=== PATIENT | female | born 1960 | race Caucasian/White ===

== ENCOUNTER 2018-06-26 08:30 | Emergency (ER) | payer OTHER ==
[~2018-06-26] VITALS: Ht 154.9 cm; Wt 81.4 kg
[~2018-06-26 08:30] MED LIST: ACET500; ACTOS; ALBU.083IS IH; ALBU90OI6 INH; ALBU90OI61 INH; ASPI325EC PO; ATEN100 PO; BENZ100A PO; CHOL10002 PO; CIPR250 PO; CIPR500 PO; Cefdinir300 MG PO; DILT240ER PO; DOCU100 PO; FISH1000 PO; Fenofibrate200 MG PO; GEMF600 PO; HYDCHL25 PO; HYDMOR2 PO; IBUP800 PO; IBUPROFEN PO; INSUASPI SC; INSULANI SC; INSULANPEN SC; LISI20 PO; MATZIM PO; METCAR500 PO; METF500 PO; METF500C PO; MORP15ER PO; Metformin HCl500 MG PO; NITR100 PO; Novolog100 UNIT/1; ONDA4 PO; ONDA4ODT MM; PHENA200 PO; PROM25 PO; RANI150 PO; RXPROM25 PO; Robaxin-750750 MG PO; SACC250C PO; SULTRIDS PO; Sulindac200 MG PO; TAMS.4ER PO; TRIHYD253A PO; TYLENOL PO; Tylenol325 MG PO; VALA500 PO
[2018-06-26] MEDS ORDERED: LOSARTAN POTASS25 MG PO (08:49)
[2018-06-26] MEDS ORDERED: ATOR20 PO (08:49)
== END 2018-06-26 09:50 | disposition home or self-care (01) ==
LOC: ER 08:30
DX: I10 Essential (primary) hypertension (principal); F32.9 Major depressive disorder, single episode, unspecified; J45.909 Unspecified asthma, uncomplicated; E11.9 Type 2 diabetes mellitus without complications; Z88.5 Allergy status to narcotic agent; Z88.2 Allergy status to sulfonamides; Z88.8 Allergy status to other drugs, medicaments and biological substances; Z79.899 Other long term (current) drug therapy; Z79.4 Long term (current) use of insulin; Z79.82 Long term (current) use of aspirin
CPT/HCPCS: 99282

== ENCOUNTER → 2018-08-17 | Outpatient (CLI) | payer OTHER ==
[~2018-08-17] MED LIST changes: +ATOR20 PO; +LOSARTAN POTASS25 MG PO
[2018-08-18 14:07] LABS: HPV 16 Negative (Negative); HPV 18 Negative (Negative); HPV OTHER HR TYPES Negative (Negative)
== END | disposition home or self-care (01) ==
LOC: LAB SHORT 13:03 → LAB 13:03
PROVIDERS: Family Medicine
DX: Z01.419 Encounter for gynecological examination (general) (routine) without abnormal findings (principal); R87.810 Cervical high risk human papillomavirus (HPV) DNA test positive
CPT/HCPCS: 87624; G0145

== ENCOUNTER → 2018-11-30 | Outpatient (CLI) | payer OTHER | END | disposition home or self-care (01) | LOC: LAB 17:06 → LAB SHORT 17:06 | DX: N20.0 Calculus of kidney (principal) | CPT/HCPCS: 87077; 87086; 87186 ==

== ENCOUNTER → 2019-01-02 | Outpatient (CLI) | payer OTHER ==
[2019-01-03 07:14] LABS: Candida species (DNA Probe) Negative (NEGATIVE); G. vaginalis (DNA Probe) Negative (NEGATIVE); T. vaginalis (DNA Probe) Negative (NEGATIVE)
== END | disposition home or self-care (01) ==
LOC: LAB SHORT 16:15 → LAB 16:15
PROVIDERS: Family Medicine
DX: N39.0 Urinary tract infection, site not specified (principal); B37.3 Candidiasis of vulva and vagina
CPT/HCPCS: 87086; 87480; 87510; 87660

== ENCOUNTER → 2019-05-25 | Outpatient (CLI) | payer OTHER ==
[2019-05-26 14:53] LABS: Stool Occult Bld Immuno 1 Negative (NEGATIVE)
== END ==
LOC: LAB SHORT 15:45 → LAB 15:45
PROVIDERS: Student in an Organized Health Care Education/Training Program
DX: Z12.11 Encounter for screening for malignant neoplasm of colon (principal)
CPT/HCPCS: G0328

== ENCOUNTER 2019-11-27 12:03 | Day surgery (SDC) | payer OTHER ==
[~2019-11-27] VITALS: Ht 154.9 cm; Wt 82.8 kg
[~2019-11-27 12:03] MED LIST changes: +ALBU2.5V5; +ALBU90OI; +Amlodipine Bes2.5 MG; +BASAGLAR K100 UNIT/2; +CYCL10; +FAMO20; +FURO20; +GABA300; +Glucose4 GM; +Klor-Con 1010 MEQ; +NITR.4SL; +QVAR REDIHALE10.6 GM; +TRAZ50
--- NOTE | 2019-11-27 16:19 | NUR ---
11/27/19 1619 Nancy Devine DELAYED ENTRY 1447 PT C/O 10/11 PAIN IN SDU. PT MEDICATED WITH IV FENTANYL AND PO DILAUDED PER SURGEON PRESCRIPTION. PT STATES PAIN IS TOLERABLE BEFORE DC. PT DENIES NAUSEA IN SDU HOWEVER EMESIS X1 APPROXIMATELY 30ML YELLOW BILE WHILE GETTING DRESSED.
== END 2019-11-27 15:58 | disposition home or self-care (01) ==
LOC: ORSCSDS 12:03
PROVIDERS: Orthopaedic Surgery
PROC: 0LQ24ZZ Repair Left Shoulder Tendon, Percutaneous Endoscopic Approach (ICD-10-PCS; principal; 2019-11-27 13:30)
PROC: 0RNK4ZZ Release Left Shoulder Joint, Percutaneous Endoscopic Approach (ICD-10-PCS; principal; 2019-11-27 13:30)
PROC: 0RBK4ZZ Excision of Left Shoulder Joint, Percutaneous Endoscopic Approach (ICD-10-PCS; principal; 2019-11-27 13:30)
DX: M75.112 Incomplete rotator cuff tear or rupture of left shoulder, not specified as traumatic (principal); M75.22 Bicipital tendinitis, left shoulder; M75.42 Impingement syndrome of left shoulder; I10 Essential (primary) hypertension; J45.909 Unspecified asthma, uncomplicated; E11.9 Type 2 diabetes mellitus without complications; Z79.899 Other long term (current) drug therapy
CPT/HCPCS: 82947; C1713; J0171; J0690; J1100; J1885; J2250; J2370; J2405; J2704; J3010; J7120

== ENCOUNTER 2019-12-05 07:06 | Emergency (ER) | payer OTHER ==
[~2019-12-05] VITALS: Ht 154.9 cm; Wt 83.9 kg
[~2019-12-05 07:06] MED LIST changes: -Amlodipine Bes2.5 MG; +Amlodipine Bes2.5 MG PO; -CYCL10; +CYCL10 PO; -GABA300; +GABA300 PO
[2019-12-05] MEDS ORDERED: Dilaudid 2 mg Ta2 MG PO (07:21)
[2019-12-05 08:07] LABS: BASOPHILS ABSOLUTE AUTO 0.05 K/mm3 (0.00-0.23); BASOPHILS PERCENT AUTO 0 % (0-2); EOSINOPHILS ABSOLUTE AUTO 0.36 K/mm3 (0.00-0.68); EOSINOPHILS PERCENT AUTO 3 % (0-6); Hematocrit 35.7 % (33.0-51.0); Hemoglobin 11.9 g/dL (11.5-16.0); IMMATURE GRAN ABSOLUTE AUTO 0.14 K/mm3 (0.00-0.10); IMMATURE GRAN PERCENT AUTO 1 % (0-1); LYMPHOCYTES ABSOLUTE AUTO 3.51 K/mm3 (0.84-5.20); LYMPHOCYTES PERCENT AUTO 29 % (21-46); MONOCYTES ABSOLUTE AUTO 0.97 K/mm3 (0.16-1.47); MONOCYTES PERCENT AUTO 8 % (4-13); Mean Corpuscular HGB 29.5 pg (26.0-34.0); Mean Corpuscular HGB Conc 33.3 g/dL (31.5-36.5); Mean Corpuscular Volume 89 fL (80-100); Mean Platelet Volume 10.1 fL (9.1-12.4); NEUTROPHILS ABSOLUTE AUTO 7.02 K/mm3 (1.96-9.15); NEUTROPHILS PERCENT AUTO 58 % (41-73); Platelet Count 371 K/mm3 (150-400); RDW Coefficient Variation 13.2 % (11.7-14.2); RDW Standard Deviation 43.1 fL (35.1-46.3); Red Blood Cell Count 4.03 M/mm3 (3.80-5.20); White Blood Cell Count 12.05 K/mm3 (4.00-11.30)
[2019-12-05 08:29] LABS: Alanine Aminotransfer (ALT/SGP 24 U/L (12-78); Albumin/Globulin Ratio 0.7 (0.8-1.8); Alk Phos 135 U/L (50-136); Anion Gap 4 mmol/L (6-16); Aspartate Aminotrans (AST/SGOT 14 U/L (12-37); Bilirubin, Total 0.5 mg/dL (0.1-1.0); Blood Urea Nitrogen 13 mg/dL (8-24); Bun/Creatinine Ratio 20.4 (12.0-20.0); CO2, Blood 31 mmol/L (21-32); Calcium, Blood 8.8 mg/dL (8.5-10.1); Chloride, Blood 102 mmol/L (98-108); Creatinine, Blood 0.64 mg/dL (0.40-1.00); Globulin, Blood 4.1 g/dL (2.2-4.0); Glomerular Filtration Rate >60 (60-); Glucose, Blood 261 mg/dL (70-99); Potassium, Blood 3.7 mmol/L (3.5-5.5); Sodium, Blood 137 mmol/L (136-145); Total Protein, Blood 7.1 g/dL (6.4-8.2)
[2019-12-05 09:34] LABS: Source, Urine Clean Catch
[2019-12-05 09:41] LABS: Bilirubin, Urine Neg (Neg); Blood, Urine 1+ (Neg); Glucose Qualitative, Urine 3+ (Neg); Ketones, Urine Neg (Neg); Leukocyte Esterase, Urine Neg (Neg); Nitrite, Urine Neg (Neg); Protein, Urine 2+ (Neg); Specific Gravity, Urine 1.015 (1.003-1.022); Urobilinogen, Urine NORM (Normal); pH, Urine 6.5 (5.0-8.0)
[2019-12-05 09:58] LABS: Appearance, Urine Hazy (Clear); Bacteria Not Seen /hpf; Color, Urine Yellow (P-Yellow); Squamous Epithelial Cells Few /hpf (Few); White Blood Cells, Urine Not Seen /hpf (0-5)
== END 2019-12-05 11:55 | disposition short-term general hospital (02) ==
LOC: ER 07:06
PROVIDERS: Emergency Medicine
DX: N13.2 Hydronephrosis with renal and ureteral calculous obstruction (principal); J45.909 Unspecified asthma, uncomplicated; I10 Essential (primary) hypertension; E11.9 Type 2 diabetes mellitus without complications; Z88.5 Allergy status to narcotic agent; Z88.2 Allergy status to sulfonamides; Z88.8 Allergy status to other drugs, medicaments and biological substances; Z79.4 Long term (current) use of insulin; Z79.899 Other long term (current) drug therapy
CPT/HCPCS: 74176; 80053; 81001; 83690; 85025; 96361; 96374; 96375; 96376; 99285-25; J1170; J1885; J2405; J7030; U0002

== ENCOUNTER → 2022-02-05 | Outpatient (CLI) | payer OTHER ==
[~2022-02-05] MED LIST changes: +ASPI81CH PO; +BASAGLAR K100 UNIT/4; +CEPH500 PO; +CLOP75 PO; +Dilaudid 2 mg Ta2 MG PO; -FURO20; +FURO20 PO; +LANTUS SOL100 UNIT/1 SC; +LOSARTAN POTAS100 M1 PO; -LOSARTAN POTASS25 MG PO; +PANT20 PO; +POTCHL20ER PO; +QVAR REDIHALE10.6 G3 INH; -QVAR REDIHALE10.6 GM
== END ==
LOC: LAB 11:45 → LAB SHORT 11:45
DX: R82.90 Unspecified abnormal findings in urine (principal)
CPT/HCPCS: 87077; 87086; 87186

== ENCOUNTER 2022-02-13 15:39 | Inpatient (IN) | payer OTHER ==
[~2022-02-13] VITALS: Ht 154.9 cm; Wt 72.6 kg
[~2022-02-13 15:39] MED LIST changes: -ALBU90OI; +ALBU90OI INH; -ATOR20 PO; +ATOR40TA PO; -BASAGLAR K100 UNIT/4; +BASAGLAR K100 UNIT/4 SC
[2022-02-13 16:37] LABS: BASOPHILS ABSOLUTE AUTO 0.04 K/mm3 (0.00-0.23); BASOPHILS PERCENT AUTO 0 % (0-2); EOSINOPHILS ABSOLUTE AUTO 0.07 K/mm3 (0.00-0.68); EOSINOPHILS PERCENT AUTO 1 % (0-6); Hemoglobin 14.2 g/dL (11.5-16.0); IMMATURE GRAN ABSOLUTE AUTO 0.06 K/mm3 (0.00-0.10); IMMATURE GRAN PERCENT AUTO 1 % (0-1); LYMPHOCYTES ABSOLUTE AUTO 2.91 K/mm3 (0.84-5.20); LYMPHOCYTES PERCENT AUTO 29 % (21-46); MONOCYTES ABSOLUTE AUTO 0.57 K/mm3 (0.16-1.47); MONOCYTES PERCENT AUTO 6 % (4-13); Mean Corpuscular HGB Conc 34.6 g/dL (31.5-36.5); Mean Corpuscular Volume 84 fL (80-100); Mean Platelet Volume 9.8 fL (9.1-12.4); NEUTROPHILS ABSOLUTE AUTO 6.26 K/mm3 (1.96-9.15); NEUTROPHILS PERCENT AUTO 63 % (41-73); Platelet Count 447 K/mm3 (150-400); RDW Coefficient Variation 12.8 % (11.7-14.2); RDW Standard Deviation 38.8 fL (35.1-46.3); White Blood Cell Count 9.91 K/mm3 (4.00-11.30)
[2022-02-13 16:56] LABS: Albumin, Blood 3.9 g/dL (3.4-5.0); Albumin/Globulin Ratio 0.9 (0.8-1.8); Bilirubin, Total 0.7 mg/dL (0.1-1.0); Bun/Creatinine Ratio 14.6 (12.0-20.0); Calcium, Blood 9.7 mg/dL (8.5-10.1); Creatinine, Blood 0.62 mg/dL (0.40-1.00); Globulin, Blood 4.2 g/dL (2.2-4.0); Potassium, Blood 3.1 mmol/L (3.5-5.5); Total Protein, Blood 8.1 g/dL (6.4-8.2)
[2022-02-14 02:12] LABS: Source, Urine Clean Catch
[2022-02-14 02:15] LABS: Bilirubin, Urine Neg (Neg); Blood, Urine 1+ (Neg); Glucose Qualitative, Urine Neg (Neg); Ketones, Urine 1+ (Neg); Leukocyte Esterase, Urine 3+ (Neg); Nitrite, Urine Neg (Neg); Protein, Urine 3+ (Neg); Urobilinogen, Urine NORM (Normal)
[2022-02-14 02:23] LABS: Appearance, Urine Hazy (Clear); Color, Urine Yellow (P-Yellow)
[2022-02-14 02:24] LABS: Amorphous Light (0-Heavy); Bacteria Many /hpf; Red Blood Cells, Urine 0-2 /hpf (0-2); Squamous Epithelial Cells Many /hpf (Few)
[2022-02-14 05:04] LABS: BASOPHILS ABSOLUTE AUTO 0.05 K/mm3 (0.00-0.23); BASOPHILS PERCENT AUTO 1 % (0-2); EOSINOPHILS PERCENT AUTO 2 % (0-6); Hematocrit 38.6 % (33.0-51.0); Hemoglobin 13.2 g/dL (11.5-16.0); IMMATURE GRAN ABSOLUTE AUTO 0.03 K/mm3 (0.00-0.10); IMMATURE GRAN PERCENT AUTO 0 % (0-1); LYMPHOCYTES ABSOLUTE AUTO 2.76 K/mm3 (0.84-5.20); LYMPHOCYTES PERCENT AUTO 32 % (21-46); MONOCYTES ABSOLUTE AUTO 0.75 K/mm3 (0.16-1.47); MONOCYTES PERCENT AUTO 9 % (4-13); Mean Corpuscular HGB 28.8 pg (26.0-34.0); Mean Corpuscular HGB Conc 34.2 g/dL (31.5-36.5); Mean Corpuscular Volume 84 fL (80-100); NEUTROPHILS ABSOLUTE AUTO 4.85 K/mm3 (1.96-9.15); NEUTROPHILS PERCENT AUTO 56 % (41-73); Platelet Count 373 K/mm3 (150-400); RDW Coefficient Variation 12.9 % (11.7-14.2); RDW Standard Deviation 39.1 fL (35.1-46.3); Red Blood Cell Count 4.59 M/mm3 (3.80-5.20); White Blood Cell Count 8.64 K/mm3 (4.00-11.30)
[2022-02-14 05:51] LABS: Albumin, Blood 3.3 g/dL (3.4-5.0); Albumin/Globulin Ratio 0.9 (0.8-1.8); Bilirubin, Total 0.7 mg/dL (0.1-1.0); Bun/Creatinine Ratio 16.4 (12.0-20.0); Calcium, Blood 8.5 mg/dL (8.5-10.1); Creatinine, Blood 0.55 mg/dL (0.40-1.00); Globulin, Blood 3.6 g/dL (2.2-4.0); Potassium, Blood 3.4 mmol/L (3.5-5.5); Total Protein, Blood 6.9 g/dL (6.4-8.2)
--- NOTE | 2022-02-14 07:43 | NUR ---
PATIENT IS ALERT AND ORIENTED X3. SLIGHT WEAKNESS RIGHT UPPER AND LOWER EXTREMITIES. TONGUE DEVIATES TO THE LEFT ALTHOUGH SMILE APPEARS SYMETRICAL. PUPILS EQUAL AND REACTIVE TO LIGHT. SHE IS SOMEWHAT SLOW TO RESPOND, AND WAS VERY FRUSTRATED THAT SHE WAS UNABLE TO REMEMBER THE DOSES OF HER MEDICATIONS, OR EXACTLY HOW LONG AGO SHE BEGAN FEELING BAD AND STOPPED TAKING HER PILLS. SHE WAS ABLE TO TELL ME THAT [facility] IS HER PHARMACY, AND THAT THEY COULD GIVE US THE CORRECT INFORMATION. STOOD PATIENT UP TO ASSIST TO THE BEDSIDE COMMODE, AND SHE WAS ABLE TO PIVOT TO THE COMMODE AND SIT WITH LITTLE MORE THAN A SUPERVISION. BP UPON ARRIVAL TO THE FLOOR WAS 205 SYSTOLIC. AFTER LAYING DOWN, AND GETTING COMFORTABLE,PRESSURES WENT INTO THE 170'S. ATTEMPTED TO GIVE AM DOSE OF COZAAR, BUT THE MEDICATION WAS NOT READILY AVAILABLE IT WASN'T DUE UNTIL 0900. ONCOMING RN WILL CONTACT HOSPITALIST TO NOTIFY
--- NOTE | 2022-02-14 12:10 | NUR ---
TAKING OVER PT CARE 1200 FROM [facility], OBTAINED REPORT. PLAN FOR MRI AFTER VERIFYING STENT PLACED IS COMPATIBLE. ASSESSED PT'S NEURO 1145- STATES SHE FEELS OVERALL FATIGUED, FUZZY VISION R EYE, SHOE STAINER STRONG AND EQUAL BUT STATES SHE FEELS THE R IS "", HAS NUMBNESS AND LOSS OF SENSATION OF R ARM. BLOOD PRESURE ELEVATED, PERMISSIVELY RELATED TO DIAGNOSIS. NS @75ML/HR. ECHO COMPLETED. SWALLOW INTACT, TOLERATING FOOD AND FLUIDS. WILL VEE THE REST OF THE SHIFT.
--- NOTE | 2022-02-14 18:10 | NUR ---
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 BLURRY VISION IN R SIDE. ABLE TO AMBULATE WITH GOOD STRENGTH, MILDLY UNSTEADY, NEEDS CONTACT GUARD. TOLERATING FOOD AND FUIDS, SWALLOW INTACT. WILL REPORT TO SENIOR SUPPORT ANALYST.
--- NOTE | 2022-02-14 23:06 | NUR ---
2039 PT LYING IN BED, REPORTS A HEADACHE, NO TYLENOL ORDERED, WILL CALL AND F/U. TELE NSR AT 61. TEMP OF 99.3. BP 191/81. NO PRN OR SCHEDULED BP MEDS ORDERED, WILL ASK DR AND F/U. NO OTHER APPARENT SIGNS OF DISTRESS. CALL LIGHT IS IN REACH. 2158 TEMP IS NOW 98.9, PT REPORTS PAIN IS NOW MODERATE. PT DENIES NEED FOR ANYTHING ELSE AT THIS TIME. NO OTHER APPARENT SIGNS OF DISTRESS. CALL LIGHT IS IN REACH.
--- NOTE | 2022-02-15 00:23 | NUR ---
PT LYING IN BED, EYES CLOSED, APPEARS TO BE RESTING. BREATHING IS EVEN, UNLABORED. NO APPARENT SIGNS OF DISTRESS. CALL LIGHT IS IN REACH.
[2022-02-15] MEDS ORDERED: Cipro500 MG PO (03:09)
[2022-02-15] MEDS ORDERED: CEPH500 PO (03:10)
[2022-02-15] MEDS ORDERED: ADMELOG100 UNIT/2 SC (03:11)
--- NOTE | 2022-02-15 04:39 | NUR ---
0200 PT LYING IN BED, EYES CLOSED, APPEARS TO BE RESTING. BREATHING IS EVEN, UNLABORED. NO APPARENT SIGNS OF DISTRESS. CALL LIGHT IS IN REACH.
--- NOTE | 2022-02-15 04:40 | NUR ---
PT LYING IN BED, EYES CLOSED, APPEARS TO BE RESTING. WAKES EASILY TO VERBAL STIMULI. NO APPARENT SIGNS OF DISTRESS. CALL LIGHT IS IN REACH.
--- NOTE | 2022-02-15 04:40 | NUR ---
PT IS AAO X 4, ON RA. REPORTED A HEADACHE, AND HAD A TEMP OF 99.3. GOT TYLENOL. REPORTS NUMBNESS IN HER R ARM, NOT NEW, DR AWARE. BS WAS 126. PT HAS BLURRY VISION IN R EYE, NOT NEW, AWARE. TELE NSR.
--- NOTE | 2022-02-15 06:02 | NUR ---
PT LYING IN BED, EYES CLOSED, APPEARS TO BE RESTING.WAKES EASILY TO VERBAL STIMULI.NO APPARENT SIGNS OF DISTRESS. CALL LIGHT IS IN REACH. NO OTHER CHANGES THIS SHIFT.
[2022-02-15 07:00] LABS: Bun/Creatinine Ratio 20.1 (12.0-20.0); Calcium, Blood 8.8 mg/dL (8.5-10.1); Creatinine, Blood 0.7 mg/dL (0.40-1.00); Potassium, Blood 3.3 mmol/L (3.5-5.5)
[2022-02-15 12:10] LABS: CHOL/HDL RATIO 4.4; Cholesterol 186 mg/dL (50-200); HDL Cholesterol 42 mg/dL (>39); LDL/HDL RATIO 2.4; Low Density Lipoprotein Chol 99 mg/dL (0-110); Triglycerides 224 mg/dL (30-160); Very Low Density Lipoprot Chol 44 mg/dL (6-32)
[2022-02-15] MEDS ORDERED: AMLO5 PO (17:00)
[2022-02-15] MEDS ORDERED: POTA10T PO (17:01)
[2022-02-15] MEDS ORDERED: CLOP75 PO (17:01)
--- NOTE | 2022-02-15 18:18 | NUR ---
DISCHARGE SUMMARY PATIENT MILDLY DROWSY, FORGETFUL, EXPERIENCING SOME APHASIA THROUGHOUT SHIFT. REPORTS SOME ARM NUMBNESS. IND IN ROOM, TOLERATING ADA DIET AND LIQUIDS, VOIDING WELL. DISCHARGE ORDERS OBTAINED. DISCHARGE EDUCATION GIVEN ON NEW MEDS, FOLLOW UP RECOMMENDATIONS WITH PCP AND NEUROLOGY, AND ACTIVITY LEVEL. PATIENT'S TWO DAUGHTERS ATTENTIVE AT BEDSIDE. IV DC'D WNL. PATIENT LEFT UNIT AT 1800 VIA WHEELCHAIR FOR HOME WITH DAUGHTERS.
== END 2022-02-15 18:14 | disposition home or self-care (01) | DRG 65 ==
LOC: ER 15:39 → MEDS 15:40 → ENPENDDIS 02-15 16:04 → MEDS 02-15 18:14
PROVIDERS: Family Medicine; Student in an Organized Health Care Education/Training Program; ADMIT Internal Medicine
DX: I63.89 Other cerebral infarction (principal); G81.91 Hemiplegia, unspecified affecting right dominant side; N39.0 Urinary tract infection, site not specified; G93.49 Other encephalopathy; E86.0 Dehydration; E87.6 Hypokalemia; E11.9 Type 2 diabetes mellitus without complications; K57.90 Diverticulosis of intestine, part unspecified, without perforation or abscess without bleeding; I10 Essential (primary) hypertension; J45.909 Unspecified asthma, uncomplicated; Z96.0 Presence of urogenital implants; N83.209 Unspecified ovarian cyst, unspecified side; Z96.653 Presence of artificial knee joint, bilateral; Z98.890 Other specified postprocedural states; Z90.49 Acquired absence of other specified parts of digestive tract; Z88.8 Allergy status to other drugs, medicaments and biological substances; Z88.5 Allergy status to narcotic agent; Z88.2 Allergy status to sulfonamides; Z79.02 Long term (current) use of antithrombotics/antiplatelets; Z79.899 Other long term (current) drug therapy; Z79.01 Long term (current) use of anticoagulants; Z79.4 Long term (current) use of insulin; Z79.82 Long term (current) use of aspirin; Z79.84 Long term (current) use of oral hypoglycemic drugs; Z79.51 Long term (current) use of inhaled steroids; Z87.442 Personal history of urinary calculi
CPT/HCPCS: 36415; 70450; 70496; 70551; 71045; 80048; 80053; 80061; 81001; 82947; 83036; 83880; 85025; 87086; 93005; 93010; 93306; 93880; 94640; 94664; 94760; 96365; 97110; 97112; 97116; 97162; 97166; 97530; 99285-25; A9270; C9113; G0378; J0696; J1650; J1815; J3480; J7030; J7050; Q9967

== ENCOUNTER 2023-01-11 16:24 | Observation (INO) | payer OTHER ==
[~2023-01-11] VITALS: Ht 152.4 cm; Wt 69.0 kg
[~2023-01-11 16:24] MED LIST changes: +ADMELOG100 UNIT/2 SC; +AMLO5 PO; +Cipro500 MG PO; +POTA10T PO
[2023-01-11 16:52] LABS: Base Excess Venous -14.8 mmol/L; Bicarbonate Venous 13.5 mmol/L (24.0-30.0); PCO2 Venous 48.6 mmHg (38-42)
[2023-01-11 16:55] LABS: Calcium, Ionized (POC) 1.29 mmol/L (1.10-1.46); Chloride (POC) 109 mmol/L (98-108); Creatinine (POC) 0.7 mg/dL (0.6-1.0); Glucose (ISTAT POC) 147 mg/dL (70-99); Potassium (POC) 3.3 mmol/L (3.5-5.5); Sodium (POC) 146 mmol/L (135-148); Total CO2 (POC) 18 mmol/L (21-32)
[2023-01-11 17:00] LABS: Hematocrit 43.7 % (33.0-51.0); Hemoglobin 14.4 g/dL (11.5-16.0); Mean Corpuscular HGB 29.4 pg (26.0-34.0); Mean Corpuscular Volume 89 fL (80-100); Mean Platelet Volume 10.2 fL (9.1-12.4); Platelet Count 417 K/mm3 (150-400); RDW Coefficient Variation 13.1 % (11.7-14.2); RDW Standard Deviation 42.7 fL (35.1-46.3); Red Blood Cell Count 4.89 M/mm3 (3.80-5.20); White Blood Cell Count 15.89 K/mm3 (4.00-11.30)
[2023-01-11 17:12] LABS: Source, Urine Straight Cath
[2023-01-11 17:17] LABS: Appearance, Urine Clear (Clear); Bilirubin, Urine Neg (Neg); Blood, Urine Neg (Neg); Glucose Qualitative, Urine Neg (Neg); Ketones, Urine Neg (Neg); Leukocyte Esterase, Urine Neg (Neg); Nitrite, Urine Neg (Neg); Protein, Urine 1+ (Neg); Urobilinogen, Urine NORM (Normal)
[2023-01-11 17:23] LABS: Color, Urine Pale Yellow (P-Yellow)
[2023-01-11 17:27] LABS: Albumin, Blood 4.6 g/dL (3.4-5.0); Bun/Creatinine Ratio 11.1 (12.0-20.0); Calcium, Blood 10.4 mg/dL (8.5-10.1); Creatinine, Blood 0.9 mg/dL (0.40-1.00); Globulin, Blood 4.4 g/dL (2.2-4.0); Magnesium, Blood 2.1 mg/dL (1.6-2.4); Potassium, Blood 3.4 mmol/L (3.5-5.5)
[2023-01-11 17:38] LABS: U Amphetamine Screen Not Detected; U Barbituate Screen Not Detected; U Benzodiazapine Screen Not Detected; U Buprenorphine Screen Not Detected; U Cannabinoids Screen Not Detected; U Cocaine Screen Not Detected; U Methadone Screen Not Detected; U Methamphetamine Screen Not Detected; U Opiates Screen Not Detected; U Oxycodone Screen Not Detected; U Phencyclidine Screen Not Detected; U Propoxyphene Screen Not Detected
[2023-01-11 17:41] LABS: BASOPHILS PERCENT MAN 0 % (0-2); EOSINOPHILS ABSOLUTE MAN 0.31 K/mm3 (0.00-0.68); EOSINOPHILS PERCENT MAN 2 % (0-6); LYMPHOCYTES % ATYPICAL MANUAL 1 % (0-0); LYMPHOCYTES ABSOLUTE MAN 7.46 K/mm3 (0.84-5.20); LYMPHOCYTES PERCENT MAN 46 % (21-46); MONOCYTES ABSOLUTE MAN 0.95 K/mm3 (0.16-1.47); MONOCYTES PERCENT MAN 6 % (4-13); NEUTROPHILS ABSOLUTE MAN 7.15 K/mm3 (1.96-9.15); SEG NEUTROPHILS PERCENT MAN 45 % (41-73); TOTAL CELLS COUNTED 100
[2023-01-11 20:28] LABS: pH Blood Arterial 7.41 (7.35-7.45)
[2023-01-11 20:29] LABS: PCO2 Arterial 39.7 mmHg (35-45); PO2 Arterial 92.5 mmHg (80-100)
[2023-01-11] MEDS ORDERED: GABA100 PO (21:00)
[2023-01-11] MEDS ORDERED: FURO20 PO (21:00)
[2023-01-11 21:52] VITALS: BP 122/63
--- NOTE | 2023-01-12 03:20 | NUR ---
SHIFT SUMMARY NOC PT A/O X 4. ADMIT FROM ED WITH NEW ONSET SEIZURE THAT WAS WITNESSED DURING TRIAGE. ALSO HAS MRI SCHEDULED TO R/O POSSIBLE CVA WHICH PT HAS HX OF. PT ON TELE RUNNING SINUS RHYTHM IN 60'S. HAS MIRANDA IN PLACE DRAINING TO GRAVITY. PT HAS NOT EXHIBITED ANY S/S OF ANY NEUROLOGICAL DEFICITS SO FAR, WILL CONTINUE TO MONITOR FOR CHANGES. PT IS CURRENTLY RESTING WITH BED IN LOWEST POSITION, AND CALL LIGHT WITHIN REACH.
[2023-01-12 05:12] VITALS: BP 125/62
[2023-01-12 05:37] LABS: BASOPHILS ABSOLUTE AUTO 0.06 K/mm3 (0.00-0.23); BASOPHILS PERCENT AUTO 1 % (0-2); EOSINOPHILS ABSOLUTE AUTO 0.15 K/mm3 (0.00-0.68); EOSINOPHILS PERCENT AUTO 1 % (0-6); Hematocrit 32.7 % (33.0-51.0); Hemoglobin 11.4 g/dL (11.5-16.0); IMMATURE GRAN ABSOLUTE AUTO 0.04 K/mm3 (0.00-0.10); IMMATURE GRAN PERCENT AUTO 0 % (0-1); LYMPHOCYTES PERCENT AUTO 32 % (21-46); MONOCYTES ABSOLUTE AUTO 0.73 K/mm3 (0.16-1.47); MONOCYTES PERCENT AUTO 7 % (4-13); Mean Corpuscular HGB 29.6 pg (26.0-34.0); Mean Corpuscular HGB Conc 34.9 g/dL (31.5-36.5); Mean Corpuscular Volume 85 fL (80-100); Mean Platelet Volume 9.9 fL (9.1-12.4); NEUTROPHILS ABSOLUTE AUTO 6.12 K/mm3 (1.96-9.15); NEUTROPHILS PERCENT AUTO 59 % (41-73); Platelet Count 306 K/mm3 (150-400); RDW Coefficient Variation 13.2 % (11.7-14.2); RDW Standard Deviation 40.1 fL (35.1-46.3); Red Blood Cell Count 3.85 M/mm3 (3.80-5.20)
--- NOTE | 2023-01-12 05:56 | NUR ---
PT EDUCATED ON [facility] IGNITION/EXPLOSIVES NON SMOKING SAFETY POLICY.
[2023-01-12 06:05] LABS: Bun/Creatinine Ratio 11.8 (12.0-20.0); Calcium, Blood 8.5 mg/dL (8.5-10.1); Creatinine, Blood 0.68 mg/dL (0.40-1.00); Potassium, Blood 3.3 mmol/L (3.5-5.5)
[2023-01-12 08:32] VITALS: BP 118/63
[2023-01-12 09:58] LABS: Magnesium, Blood 1.9 mg/dL (1.6-2.4); Phosphorus, Blood 3.2 mg/dL (2.5-4.9)
[2023-01-12] MEDS ORDERED: ACET500 PO (14:52)
--- NOTE | 2023-01-12 16:18 | NUR ---
SUMMARY AND DISCHARGE PATIENT EDUCATED ON FIRE SAFETY AND O2 SAFETY. REINFORCED WITH PATIENT ABOUT FLAMMABLE ITEMS AND CUMBUSTABLES. PATIENT DENIED HAVING POSSESION OF ANY. PATIENT HAD MRI OF HEAD. NO NEW FINDINGS. CATHETER DC'D AND PATIENT ABLE TO VOID. PATIENT ALERT AND ABLE TO AMBULATE INDEPENDENTLY FROM BED TO BATHROOM. PATIENT CONTINUES TO HAVE VISUAL ISSUES OF R EYE AT TIMES. PATIENT DISCHARGED TO HOME AND SCHEDULED TO FOLLOW UP WITH DR. KRISTIAN HERNANDEZ TOMORROW. PATIENT HAS BEEN SEEN BY DR. HERNANDEZ IN THE PAST. DISCHARGE INSTRUCTIONS REVIEWED WITH PATIENT AND BELONGINGS RETURNED TO PATIENT. ROOM CHECK DONE BEFORE PATIENT LEFT ROOM
== END 2023-01-12 16:12 | disposition home or self-care (01) ==
LOC: ER 16:24 → MEDS 16:25 → ENPENDDIS 01-12 15:28 → MEDS 01-12 16:12
PROVIDERS: Emergency Medicine; ADMIT Internal Medicine
DX: R56.9 Unspecified convulsions (principal); R53.1 Weakness; J44.9 Chronic obstructive pulmonary disease, unspecified; I10 Essential (primary) hypertension; E11.9 Type 2 diabetes mellitus without complications; Z86.73 Personal history of transient ischemic attack (TIA), and cerebral infarction without residual deficits; Z88.6 Allergy status to analgesic agent; Z88.5 Allergy status to narcotic agent; Z88.2 Allergy status to sulfonamides; Z88.8 Allergy status to other drugs, medicaments and biological substances
CPT/HCPCS: 36415; 36600; 51702; 70450; 70551; 71045; 80047; 80048; 80053; 82803; 82947; 83735; 84100; 85014; 85025; 93005; 93010; 96361; 96372; 96374; 99285-25; A9270; C9113; G0378; J1650; J1815; J2060; J7030

== ENCOUNTER 2024-04-06 06:12 | Day surgery (SDC) | payer OTHER ==
[~2024-04-06] VITALS: Ht 154.9 cm; Wt 62.7 kg
[~2024-04-06 06:12] MED LIST changes: +ACET500 PO; +GABA100 PO
[2024-04-06] MEDS ORDERED: Lidocaine 1%-Epineph 1:100000 20 ML MDV ONE (06:51)
[2024-04-06 07:08] VITALS: BP 167/76
[2024-04-06] MEDS ORDERED: Lactated Ringer's 1,000 ML IV ONE ×2 (07:26→08:45)
[2024-04-06] MEDS ORDERED: Tranexamic Acid 100 ML IV ONE (07:50)
[2024-04-06] MEDS ORDERED: CeFAZolin Sodium 2,000 MG VIAL ONE (07:51)
[2024-04-06] MEDS ORDERED: NS 0 ML IV ONE (07:51)
--- NOTE | 2024-04-06 09:12 | NUR ---
04/06/24 0912 Minco[facility] jett 0740: ANESTHESIA LOOKING THROUGH CHART AT CARDIAC HISTORY. 0750: PATIENT REPORTED TO RN THAT SHE DOES NOT LIKE THE IDEA OF THE BLOCK PROCEDURE PRIOR TO THE SURGERY. RN EXPLAINED IT IS WITHIN PATIENT'S RIGHTS TO REFUSE THE BLOCK PROCEDURE. RN EXPLAINED BENEFITS OF BLOCK PROCEDURE AND USE OF ULTRASOUND TO GUIDE NEEDLE. PATIENT STATED "I KNOW THAT ALREADY I WATCHED A VIDEO ABOUT IT, I AM NERVOUS ABOUT THE NEEDLE BEING THAT CLOSE TO MY HEAD." RN COMMUNICATED THIS ALL TO ANESTHESIA DR MENDEZ. DR MENDEZ WENT BACK INTO THE PATIENT'S ROOM TO DISCUSS THE BLOCK AND HER CARDIAC HISTORY. 0830: CASE CANCELLED BY ANSTHESIA, BOTH DR ANDREWS AND DR MENDEZ WENT IN TO TALK TO PATIENT. PER DR MENDEZ PATIENT SHOULD FOLLOW UP WITH HER PCP AND SEE A PIPE PULLER. 0845: IV DISCONTINUED AND PATIENT DISCHARGED. PATIENT RECEIVED 75 ML OF LR THROUGH IV WHEN IT WAS IN PLACE. SITE WNL.
== END 2024-04-06 08:45 | disposition home or self-care (01) ==
LOC: ORSCSDS 06:12
DX: S46.011A Strain of muscle(s) and tendon(s) of the rotator cuff of right shoulder, initial encounter (principal); Z53.9 Procedure and treatment not carried out, unspecified reason
CPT/HCPCS: 82947; J0690

== ENCOUNTER 2024-07-19 06:15 | Day surgery (SDC) | payer OTHER ==
[~2024-07-19] VITALS: Ht 154.9 cm; Wt 59.7 kg
[2024-07-19] VITALS (14 sets, daily range): BP systolic 115–154; BP diastolic 54–93
[~2024-07-19 06:15] MED LIST changes: +BASAGLAR K100 UNIT/1 SC; +CORGARD80 MG PO; +FLONASE ALLERG9.9 M2; +LOSA25 PO; -LOSARTAN POTAS100 M1 PO; +NITR.4SL SL; +NOVOLOG100 UNIT/2
[2024-07-19] MEDS ORDERED: Lactated Ringer's 1,000 ML IV SCH (06:25)
[2024-07-19] MEDS ORDERED: Tranexamic Acid 1,000 MG in NS 100 ML IV SCH (06:25)
[2024-07-19] MEDS ORDERED: CeFAZolin Sodium 2,000 MG in NS 100 ML IV SCH (06:25)
[2024-07-19] MEDS ORDERED: Midazolam HCl 1MG / ML 2ML Vial ONE (07:04)
[2024-07-19] MEDS ORDERED: Rocuronium Bromide 10 MG/ML 5ML Injection IV ONE (07:04)
[2024-07-19] MEDS ORDERED: Lidocaine HCl 2% 20 ML MDV ONE (07:04)
[2024-07-19] MEDS ORDERED: propofoL 20 ML IV ONE (07:05)
[2024-07-19] MEDS ORDERED: FentaNYL Citrate 50 MCG/ML 2 ML Injection ONE (07:06)
[2024-07-19] MEDS ORDERED: CeFAZolin Sodium 2,000 MG VIAL ONE (07:10)
[2024-07-19] MEDS ORDERED: EpiNEPhrine 1 MG/1 ML 1ML Vial ONE ×2 (07:18→08:36)
[2024-07-19] MEDS ORDERED: ePHEDrine Sulfate 50 MG/ML 1ML Injection ONE (07:25)
[2024-07-19] MEDS ORDERED: Phenylephrine HCl 100 MCG/ML-NS 10MLSYR (1MG/10ML) ONE ×2 (07:25→07:57)
[2024-07-19] MEDS ORDERED: Bupivacaine 0.5% HCl 5 MG/ML 30MLVIAL ONE (07:25)
[2024-07-19] MEDS ORDERED: Ondansetron HCl 2 MG / ML 2ML Vial ONE ×3 (08:08→12:39)
[2024-07-19] MEDS ORDERED: Dexamethasone Sod Phos 10 MG/ML 1ML VIAL ONE ×2 (08:08→10:46)
[2024-07-19] MEDS ORDERED: Glycopyrrolate 0.2 MG/ML 5ML VIAL ONE (08:13)
--- NOTE | 2024-07-19 10:10 | NUR ---
assumed pt care in PACU, pt stable vss pt c/o pain 8/10 cap refill less than 3 extremity pink and warm rt arm in shoulder immobilizer.
[2024-07-19] MEDS ORDERED: Ketorolac Tromethamine 30mg Vial ONE (10:12)
[2024-07-19] MEDS ORDERED: HYDROmorphone HCl/Pf 1MG SYR ONE ×2 (10:18→12:00)
[2024-07-19] MEDS ORDERED: HYDROmorphone HCl/Pf 1MG SYR IV SCH (12:00)
[2024-07-19] MEDS ORDERED: Ondansetron HCl 2 MG / ML 2ML Vial IV ONE (12:40)
--- NOTE | 2024-07-19 13:06 | NUR ---
PATIENT DISCHARGE TO HOME. DILAUDID 1MG AND ZOFRAN 4MG IV GIVEN FOR PAIN CONTROL WITH GOOD RELIEF. STABLE FOR DISCHARGE. Discharge instructions reviewed with patient and daughter. Patient and daughter verbalizes understanding. Copy given to patient to take home. Discharged via wheelchair to private car for ride home. DR ANDREWS TO CALL IN RX MEDICATIONS FOR PAIN AND NAUSEA CONTROL. POLAR PACK SENT HOME WITH PATIENT ALONG WITH PATIENT SLING IN PLACE.
== END 2024-07-19 13:06 | disposition home or self-care (01) ==
LOC: ORSCMMR 06:15 → ORD 07:30 → ORSCMMR 13:06
PROVIDERS: Orthopaedic Surgery Sports Medicine
PROC: 0LM14ZZ Reattachment of Right Shoulder Tendon, Percutaneous Endoscopic Approach (ICD-10-PCS; principal; 2024-07-19 07:30)
PROC: 0RBJ4ZZ Excision of Right Shoulder Joint, Percutaneous Endoscopic Approach (ICD-10-PCS; principal; 2024-07-19 07:30)
PROC: 0RNJ4ZZ Release Right Shoulder Joint, Percutaneous Endoscopic Approach (ICD-10-PCS; principal; 2024-07-19 07:30)
DX: M75.121 Complete rotator cuff tear or rupture of right shoulder, not specified as traumatic (principal); S46.011A Strain of muscle(s) and tendon(s) of the rotator cuff of right shoulder, initial encounter; M75.21 Bicipital tendinitis, right shoulder; I10 Essential (primary) hypertension; E11.9 Type 2 diabetes mellitus without complications; I25.2 Old myocardial infarction; Z86.73 Personal history of transient ischemic attack (TIA), and cerebral infarction without residual deficits; J45.909 Unspecified asthma, uncomplicated; Z79.4 Long term (current) use of insulin; Z79.899 Other long term (current) drug therapy; Z79.82 Long term (current) use of aspirin
CPT/HCPCS: 82947; C1713; J0171; J0690; J1100; J1171; J1885; J2250; J2371; J2405; J2704; J3010; J7120

== ENCOUNTER → 2024-10-16 | Outpatient (CLI) | payer OTHER ==
[2024-10-16 19:23] LABS: Candida Group, PCR NOT DETECTED (NOT DETECT); Candida glabrata-krusei, PCR NOT DETECTED (NOT DETECT)
[2024-10-16 20:29] LABS: Bacterial Vaginosis PCR Positive (NEGATIVE)
== END | disposition home or self-care (01) ==
LOC: LAB SHORT 14:58 → LAB 14:58
PROVIDERS: Physician Assistant
DX: N89.8 Other specified noninflammatory disorders of vagina (principal)
CPT/HCPCS: 81515

== ENCOUNTER → 2025-03-06 | Outpatient (CLI) | payer OTHER ==
[2025-03-06 11:12] LABS: BASOPHILS ABSOLUTE AUTO 0.05 K/mm3 (0.00-0.23); BASOPHILS PERCENT AUTO 1 % (0-2); EOSINOPHILS ABSOLUTE AUTO 0.22 K/mm3 (0.00-0.68); EOSINOPHILS PERCENT AUTO 2 % (0-6); Hematocrit 38.2 % (33.0-51.0); Hemoglobin 13.3 g/dL (11.5-16.0); IMMATURE GRAN ABSOLUTE AUTO 0.03 K/mm3 (0.00-0.10); IMMATURE GRAN PERCENT AUTO 0 % (0-1); LYMPHOCYTES ABSOLUTE AUTO 2.40 K/mm3 (0.84-5.20); LYMPHOCYTES PERCENT AUTO 23 % (21-46); MONOCYTES ABSOLUTE AUTO 0.55 K/mm3 (0.16-1.47); MONOCYTES PERCENT AUTO 5 % (4-13); Mean Corpuscular HGB Conc 34.8 g/dL (31.5-36.5); Mean Corpuscular Volume 85 fL (80-100); NEUTROPHILS ABSOLUTE AUTO 7.08 K/mm3 (1.96-9.15); NEUTROPHILS PERCENT AUTO 69 % (41-73); NRBC ABSOLUTE 0.00 K/mm3 (0.00-0.02); NRBC Auto 0.0 /100 WBC (0.0-0.2); Platelet Count 302 K/mm3 (150-400); RDW Coefficient Variation 12.8 % (11.7-14.2); RDW Standard Deviation 39.5 fL (35.1-46.3)
[2025-03-06 11:25] LABS: Alanine Aminotransfer (ALT/SGP 26.0 U/L (12-78); Albumin, Blood 3.9 g/dL (3.4-5.0); Albumin/Globulin Ratio 1.1 (0.8-1.8); Anion Gap 13.0 mmol/L (6-16); Aspartate Aminotrans (AST/SGOT 18.0 U/L (12-37); Bilirubin, Total 1.2 mg/dL (0.1-1.0); Blood Urea Nitrogen 9.0 mg/dL (8-24); CO2, Blood 29.0 mmol/L (21-32); Calcium, Blood 9.3 mg/dL (8.5-10.1); Chloride, Blood 105.0 mmol/L (98-108); Creatinine, Blood 0.77 mg/dL (0.40-1.00); Globulin, Blood 3.6 g/dL (2.2-4.0); Glucose, Blood 115.0 mg/dL (70-99); Potassium, Blood 4.1 mmol/L (3.5-5.5); Sodium, Blood 143.0 mmol/L (136-145); Total Protein, Blood 7.5 g/dL (6.4-8.2)
== END | disposition home or self-care (01) ==
LOC: LAB 11:08 → LAB SHORT 11:08
PROVIDERS: Physician Assistant
DX: R10.9 Unspecified abdominal pain (principal)
CPT/HCPCS: 80053; 83690; 85025

== ENCOUNTER → 2025-03-15 | Outpatient (CLI) | payer OTHER ==
[2025-03-15 15:29] LABS: Source, Urine Clean Catch
[2025-03-15 18:04] LABS: Red Blood Cells, Urine 0-2 /hpf (0-2)
== END ==
LOC: LAB SHORT 15:28 → LAB 15:28
PROVIDERS: Nurse Practitioner Family
DX: R31.9 Hematuria, unspecified (principal)
CPT/HCPCS: 81015